=== PATIENT | female | born 1990 | race Caucasian/White ===

== ENCOUNTER 2016-08-14 20:21 | Emergency (ER) | payer MEDICAID | END 2016-08-14 20:45 | disposition home or self-care (01) | LOC: D.ER 20:21 | DX: S60.417A Abrasion of left little finger, initial encounter (principal); X58.XXXA Exposure to other specified factors, initial encounter; Y93.89 Activity, other specified; Y92.89 Other specified places as the place of occurrence of the external cause ==

== ENCOUNTER 2016-10-19 09:06 | Emergency (ER) | payer MEDICAID ==
[2016-10-19 09:58] LABS: BASOPHILS 0.5 % (0-2); EOSINOPHILS 1.9 % (0-7); HEMATOCRIT 47.7 % (36.0-48.0); HEMOGLOBIN 16.6 g/dL (12-16); IMMATURE GRANULOCYTES 0.2 % (0-5); LYMPHOCYTES 40.1 % (15-50); MCH 31.6 pg (26.0-34.0); MCHC 34.8 g/dL (31.0-37.0); MCV 90.7 fL (80.0-100.0); MEAN PLATELET VOLUME 10.1 fL (7.4-10.4); MONOCYTES 5.7 % (2-11); NEUTROPHILS 51.6 % (40-80); RBC 5.26 10x6/uL (4.00-5.40); RDW 11.8 % (11.5-14.5); WBC 9.8 10x3/uL (4.8-10.8)
[2016-10-19 10:07] LABS: PLATELET COUNT 269 10x3/uL (130-400)
[2016-10-19 10:12] LABS: ALBUMIN 4.4 g/dL (3.4-5.0); ALKALINE PHOSPHATASE 72 U/L (46-116); ALT (SGPT) 45 U/L (10-68); BILIRUBIN - TOTAL 0.77 mg/dL (0.2-1.3); CALC OSMOLALITY 281 mosm/kg (275-300); CALCIUM 9.4 mg/dL (8.5-10.1); CARBON DIOXIDE 29.3 mmol/L (21.0-32.0); CHLORIDE - SERUM 101 mmol/L (98-107); CREATININE - SERUM 0.7 mg/dL (0.6-1.3); GLUCOSE 110 mg/dL (74-106); SODIUM 141 mmol/L (136-145); UREA NITROGEN 12 mg/dL (7-18); eGFR NON AFRICAN AMERICAN > 90 mL/min (90-120)
[2016-10-19 10:20] LABS: APPEARANCE CLOUDY (CLEAR); BILIRUBIN NEGATIVE (NEGATIVE); COLOR DK YELLOW (YELLOW); GLUCOSE NEGATIVE (NEGATIVE); KETONE NEGATIVE (NEGATIVE); LEUKOCYTE ESTERASE 1+ (NEGATIVE); NITRITE NEGATIVE (NEGATIVE); PROTEIN TRACE mg/dL (NEGATIVE); SPECIFIC GRAVITY 1.025 (1.005-1.020); UROBILINOGEN NORMAL (NORMAL)
[2016-10-19 10:21] LABS: AMORPHOUS SEDIMENT <1+ /lpf (NONE SEEN); BACTERIA MANY /hpf (NONE SEEN); CALCIUM OXALATE CRYSTALS 25-50 /hpf (NONE SEEN); EPITHELIAL CELLS >50 /hpf (0-5); MUCUS <1+ /lpf (NONE SEEN); RED CELLS - URINE OCC /hpf (0-5); UDS - AMPHET POSITIVE QUAL (NEGATIVE); UDS - BARB NEGATIVE QUAL (NEGATIVE); UDS - BENZO NEGATIVE QUAL (NEGATIVE); UDS - COCAINE NEGATIVE QUAL (NEGATIVE); UDS - METH NEGATIVE QUAL (NEGATIVE); UDS - OPIATE NEGATIVE QUAL (NEGATIVE); UDS - PCP NEGATIVE QUAL (NEGATIVE); UDS - THC POSITIVE QUAL (NEGATIVE)
== END 2016-10-19 13:42 | disposition home or self-care (01) ==
LOC: D.ER 09:06
PROVIDERS: Emergency Medicine
DX: F15.10 Other stimulant abuse, uncomplicated (principal); F12.10 Cannabis abuse, uncomplicated; F17.200 Nicotine dependence, unspecified, uncomplicated

== ENCOUNTER 2017-12-16 18:15 | Emergency (ER) | payer MEDICAID ==
[~2017-12-16] VITALS: Ht 152.4 cm; Wt 54.5 kg
[2017-12-16 18:32] VITALS: Ht 152.4 cm; Wt 54.5 kg
[2017-12-16 19:36] LABS: BASOPHILS 0.6 % (0-2); EOSINOPHILS 0.3 % (0-7); HEMATOCRIT 47.3 % (36.0-48.0); HEMOGLOBIN 16.2 g/dL (12-16); IMMATURE GRANULOCYTES 0.2 % (0-5); LYMPHOCYTES 40.9 % (15-50); MCH 30.9 pg (26.0-34.0); MCHC 34.2 g/dL (31.0-37.0); MCV 90.1 fL (80.0-100.0); MEAN PLATELET VOLUME 9.7 fL (7.4-10.4); MONOCYTES 6.5 % (2-11); NEUTROPHILS 51.5 % (40-80); PLATELET COUNT 255 10x3/uL (130-400); RBC 5.25 10x6/uL (4.00-5.40); RDW 12.6 % (11.5-14.5); WBC 10.4 10x3/uL (4.8-10.8)
[2017-12-16 20:00] LABS: ALBUMIN 4.3 g/dL (3.4-5.0); ALKALINE PHOSPHATASE 62 U/L (46-116); ALT (SGPT) 49 U/L (10-68); BILIRUBIN - TOTAL 0.82 mg/dL (0.2-1.3); CALC OSMOLALITY 279 mosm/kg (275-300); CALCIUM 9.7 mg/dL (8.5-10.1); CARBON DIOXIDE 26.9 mmol/L (21.0-32.0); CHLORIDE - SERUM 101 mmol/L (98-107); CREATININE - SERUM 0.9 mg/dL (0.6-1.3); GLUCOSE 84 mg/dL (74-106); POTASSIUM - SERUM 4.1 mmol/L (3.5-5.1); PROTEIN - SERUM 8.7 g/dL (6.4-8.2); SODIUM 140 mmol/L (136-145); UREA NITROGEN 19 mg/dL (7-18); eGFR NON AFRICAN AMERICAN 80 mL/min (90-120)
[2017-12-16 20:35] LABS: HCG SERUM NEGATIVE (NEGATIVE)
[2017-12-16 21:55] LABS: UDS - AMPHET POSITIVE QUAL (NEGATIVE); UDS - BARB NEGATIVE QUAL (NEGATIVE); UDS - BENZO NEGATIVE QUAL (NEGATIVE); UDS - COCAINE NEGATIVE QUAL (NEGATIVE); UDS - OPIATE NEGATIVE QUAL (NEGATIVE); UDS - PCP NEGATIVE QUAL (NEGATIVE); UDS - THC POSITIVE QUAL (NEGATIVE)
[2017-12-16 22:02] LABS: APPEARANCE TURBID (CLEAR); BILIRUBIN NEGATIVE (NEGATIVE); COLOR AMBER (YELLOW); GLUCOSE NEGATIVE (NEGATIVE); KETONE LARGE mg/dL (NEGATIVE); NITRITE NEGATIVE (NEGATIVE); PROTEIN 1+ mg/dL (NEGATIVE); UROBILINOGEN NORMAL (NORMAL)
[2017-12-16 22:03] LABS: BACTERIA MANY /hpf (NONE SEEN)
[2017-12-16 22:04] LABS: AMORPHOUS SEDIMENT <1+ /lpf (NONE SEEN); MUCUS <1+ /lpf (NONE SEEN)
[2017-12-17 02:47] VITALS: BP 115/62
== END 2017-12-17 03:00 ==
LOC: D.ER 18:15
PROVIDERS: Emergency Medicine
DX: F29 Unspecified psychosis not due to a substance or known physiological condition (principal); F22 Delusional disorders; Z86.59 Personal history of other mental and behavioral disorders; N39.0 Urinary tract infection, site not specified

== ENCOUNTER 2018-05-26 02:05 | Emergency (ER) | payer MEDICAID ==
[~2018-05-26] VITALS: Ht 152.4 cm; Wt 60.9 kg
[2018-05-26 02:09] VITALS: Ht 152.4 cm; Wt 60.9 kg
[2018-05-26] MEDS ORDERED: FLOVENT HFA 11012 GM INH (02:11)
[2018-05-26] MEDS ORDERED: PROVENTIL/2.5 MG/3 M INH (02:24)
[2018-05-26] MEDS ORDERED: KEFLEX500 MG PO (02:24)
[2018-05-26 02:46] VITALS: BP 117/62
== END 2018-05-26 02:46 | disposition home or self-care (01) ==
LOC: D.ER 02:05
DX: J06.9 Acute upper respiratory infection, unspecified (principal)

== ENCOUNTER 2018-08-11 23:28 | Outpatient (CLI) | payer MEDICAID ==
[2018-05-26 02:09] VITALS: BMI 26.2
[~2018-08-11 23:28] MED LIST: FLOVENT HFA 11012 GM INH; KEFLEX500 MG PO; PROVENTIL/2.5 MG/3 M INH
[2018-08-11] MEDS ORDERED: PRENAVITE1 TAB PO (23:35)
[2018-08-11] MEDS ORDERED: ZOFRAN ODT4 MG/UDTAB (23:36)
[2018-08-12 00:42] LABS: UDS - AMPHET NEGATIVE QUAL (NEGATIVE); UDS - BARB NEGATIVE QUAL (NEGATIVE); UDS - BENZO NEGATIVE QUAL (NEGATIVE); UDS - COCAINE NEGATIVE QUAL (NEGATIVE); UDS - OPIATE NEGATIVE QUAL (NEGATIVE); UDS - PCP NEGATIVE QUAL (NEGATIVE); UDS - THC NEGATIVE QUAL (NEGATIVE)
[2018-08-12 00:51] LABS: APPEARANCE HAZY (CLEAR); BILIRUBIN NEGATIVE (NEGATIVE); COLOR DK YELLOW (YELLOW); GLUCOSE NEGATIVE (NEGATIVE); KETONE SMALL mg/dL (NEGATIVE); NITRITE NEGATIVE (NEGATIVE); PROTEIN NEGATIVE (NEGATIVE)
== END 2018-08-12 01:15 | disposition home or self-care (01) ==
LOC: D.LDO 23:28 → D.LD 23:29 → D.LDO 08-12 01:15
PROVIDERS: ATTEND Obstetrics & Gynecology
DX: O26.892 Other specified pregnancy related conditions, second trimester (principal); Z3A.26 26 weeks gestation of pregnancy

== ENCOUNTER 2018-09-30 18:55 | Outpatient (CLI) | payer MEDICAID ==
[2018-05-26 02:09] VITALS: BMI 26.2
[~2018-09-30 18:55] MED LIST changes: +PRENAVITE1 TAB PO; +ZOFRAN ODT4 MG/UDTAB
[2018-09-30] MEDS ORDERED: BUPRENORPHINE HC8 MG SL (19:03)
--- NOTE | 2018-09-30 19:53 | NUR ---
DR. FENTON NOTIFIED AND REVIEWED PT'S. BEHAVIOR AND ASSESSMENT RESULTS. PT IS A LOW RISK PER DR. FENTON. DR. FENTON STATED TO GIVE RESOURCES TO PT AT TIME OF DISCHARGE. NO FURTHER ORDERS AT THIS TIME. RESOURCES REVIEWED WITH PT AND SHE VERBALIZED UNDERSTANDING.
[2018-09-30 20:42] LABS: UDS - AMPHET NEGATIVE QUAL (NEGATIVE); UDS - BARB NEGATIVE QUAL (NEGATIVE); UDS - BENZO NEGATIVE QUAL (NEGATIVE); UDS - COCAINE NEGATIVE QUAL (NEGATIVE); UDS - OPIATE NEGATIVE QUAL (NEGATIVE); UDS - PCP NEGATIVE QUAL (NEGATIVE); UDS - THC NEGATIVE QUAL (NEGATIVE)
[2018-09-30 20:52] LABS: APPEARANCE CLOUDY (CLEAR); BILIRUBIN NEGATIVE (NEGATIVE); COLOR DK YELLOW (YELLOW); GLUCOSE NEGATIVE (NEGATIVE); KETONE NEGATIVE (NEGATIVE); NITRITE POSITIVE (NEGATIVE); PROTEIN TRACE mg/dL (NEGATIVE); SPECIFIC GRAVITY 1.015 (1.005-1.020); UROBILINOGEN NORMAL (NORMAL)
[2018-09-30 20:54] LABS: BACTERIA MANY /hpf (NONE SEEN); EPITHELIAL CELLS 0-5 /hpf (0-5); RED CELLS - URINE 0-5 /hpf (0-5); WHITE CELLS - URINE 0-5 /hpf (0-5)
[2018-11-02 05:38] VITALS: BMI 27.7
== END 2018-10-01 08:22 | disposition home or self-care (01) ==
LOC: D.LDO 18:55 → D.LD 20:59 → D.LDO 10-01 08:22
PROVIDERS: ATTEND Obstetrics & Gynecology
DX: O26.893 Other specified pregnancy related conditions, third trimester (principal); Z3A.34 34 weeks gestation of pregnancy

== ENCOUNTER 2018-11-02 01:55 | Inpatient (IN) | payer MEDICAID ==
[~2018-11-02] VITALS: Ht 152.4 cm; Wt 64.4 kg
[2018-11-02] VITALS (13 sets, daily range): BP systolic 104–120; BP diastolic 55–73; Ht 152.4 cm; Wt 64.4 kg
--- NOTE | ~2018-11-02 | OP ---
PATIENT NAME: GHADA NEGRON MEDICAL RECORD: [id number] :[birth year] LOCATION:[facility] D.1276 ADMISSION DATE:11/02/18 SURGEON: IVONNE SHERIDAN DO DATE OF OPERATION: 11/02/2018 PREOPERATIVE DIAGNOSIS: Previous section, in labor. POSTOPERATIVE DIAGNOSIS: Previous section, in labor. PRIMARY SURGEON: Ivonne Sheridan DO ANESTHESIA: Bertram Espinoza CRNA. PROCEDURE: Repeat low transverse section via Pfannenstiel incision. FINDINGS: Male infant, weight 6 pounds, Apgars 8 and 8, delivered at 4:02 a.m. Adhesions of anterior uterus to anterior abdominal wall. Normal-appearing uterus, bilateral fallopian tubes, and bilateral ovaries. SPECIMENS: Placenta. ESTIMATED BLOOD LOSS: 800 cc. FLUIDS: 1200 cc. URINE OUTPUT: 300 cc of clear urine. COMPLICATIONS: None. CONDITION: Stable. DESCRIPTION OF PROCEDURE: The risks, benefits, alternatives, and indications of the procedure were discussed with the patient. She voiced understanding of the procedure and signed the consent. She was taken to the OR where spinal anesthesia was administered and found to be adequate. She was placed in the dorsal supine position with a leftward tilt. She was prepped and draped in normal sterile fashion. A Pfannenstiel skin incision was made with a scalpel and carried down to the underlying layer of the fascia with the Bovie. The fascia was incised in the midline and extended laterally. The inferior aspect of the fascial incision was grasped with Hue clamps and the rectus muscle was dissected off sharply. Attention was then turned to the superior aspect of the fascial incision and the rectus muscle was dissected off in a similar fashion. The rectus muscle was grasped with 2 Allis, down to the level of the peritoneum with a scalpel. The peritoneum was noted to be free of adherent bowel and entered bluntly. There were adhesions of the anterior uterus to the anterior abdominal wall, which were taken down via sharp dissection. A bladder flap was created with Metzenbaum scissors. The bladder blade was inserted and the uterus was incised in a transverse fashion in the lower uterine segment. The incision was extended with lateral and upward traction. The infant's head was brought to the incision, and the delivered without difficulty. Meconium fluid was noted. Mouth and nose were suctioned. Cord was clamped and cut. The was handed off to the awaiting card tender. The placenta was manually removed. The uterus was exteriorized and a moist laparotomy sponge was used to assure complete removal of placental membranes. The hysterotomy was closed with 0 Vicryl in a running locked fashion with good hemostasis noted. OPERATIVE REPORT [id number] GHADA NEGRON Uterus, tubes, and ovaries were noted to be normal and returned back to the abdominal cavity. A moist laparotomy sponge was used to assure complete removal of blood clots and fluid from the abdominal cavity. The hysterotomy was reinspected and noted to be hemostatic. The rectus muscle was closed with 2-0 Monocryl in a running fashion with good hemostasis. The fascial incision was closed with 0 Vicryl in a running fashion with good hemostasis. The skin was closed with 3-0 Monocryl in a subcuticular fashion with Dermabond dressing. All needle, lap, sponge, and instrument counts were correct times 2. The patient tolerated the procedure well, and she was taken to recovery room in stable condition. TRANSINT:[id number] Voice Confirmation ID: [id number] DOCUMENT ID: [id number] IVONNE SHERIDAN DO CC: [id number] DICTATION DATE: 11/02/18 0504 FACILITY ASSISTANT: 11/02/18 06 ADM IN [facility] [address] [place] [address]
[~2018-11-02 01:55] MED LIST changes: +BUPRENORPHINE HC8 MG SL
[2018-11-02 03:13] LABS: HEMATOCRIT 33.2 % (36.0-48.0); HEMOGLOBIN 11.3 g/dL (12-16); MCH 29.4 pg (26.0-34.0); MCV 86.2 fL (80.0-100.0); MEAN PLATELET VOLUME 9.5 fL (7.4-10.4); RBC 3.85 10x6/uL (4.00-5.40); RDW 13.6 % (11.5-14.5); WBC 9.5 10x3/uL (4.8-10.8)
[2018-11-02 03:16] LABS: APPEARANCE CLEAR (CLEAR); BILIRUBIN NEGATIVE (NEGATIVE); COLOR YELLOW (YELLOW); GLUCOSE NEGATIVE (NEGATIVE); KETONE NEGATIVE (NEGATIVE); NITRITE NEGATIVE (NEGATIVE); PROTEIN NEGATIVE (NEGATIVE); SPECIFIC GRAVITY 1.005 (1.005-1.020); UROBILINOGEN NORMAL (NORMAL)
[2018-11-02 03:22] LABS: UDS - AMPHET NEGATIVE QUAL (NEGATIVE); UDS - BARB NEGATIVE QUAL (NEGATIVE); UDS - BENZO NEGATIVE QUAL (NEGATIVE); UDS - COCAINE NEGATIVE QUAL (NEGATIVE); UDS - OPIATE NEGATIVE QUAL (NEGATIVE); UDS - PCP NEGATIVE QUAL (NEGATIVE); UDS - THC NEGATIVE QUAL (NEGATIVE)
[2018-11-02] MEDS ORDERED: PHENERGAN25 MG RC (04:06)
[2018-11-02] MEDS ORDERED: PREPLUS CA-FE1 EACH PO (04:07)
[2018-11-02] MEDS ORDERED: PROAIR IH (04:11)
--- NOTE | 2018-11-02 05:30 | NUR ---
RECEIVED PT VIA BED FROM RR POST REPEAT C/S PER DR SHERIDAN, PT TO ROOM 1276, THIS RN AND SHAWANDA DE LA FUENTE RN IN ROOM, SHAWANDA DE LA FUENTE RN CHECKS FUNDUS, FF, ML, U/U, REPORTS MOD BLEEDING WITH NO CLOTS, VS INITIATED, NEW BAG NS WITH PITOCIN HUNG INFUSING VIA PUMP AT 125 ML/HR, OBTAINED ADMISSION ASSESSMENT, HISTORY, AND MED REC AT THIS TIME, PT RATES INC PAIN 09/22, TALKED TO PT ABOUT PAIN MANAGEMENT, PT VERBALIZES UNDERSTANDING, SHAWANDA DE LA FUENTE RN EMPTIES JUÁREZ CATH, REPORTS 300 MLS, SCD'S CONNECTED TO PUMP AND WORKING PROPERLY, BED IN LOW POSITION, SIDE RAILS X 2, CALL LIGHT IN REACH
--- NOTE | 2018-11-02 06:00 | NUR ---
PT RESTING, FF, ML, U/U, MOD BLEEDING NOTED WITH NO CLOTS, JHONATAN PAD CHANGED, WILL CONTINUE TO MONITOR
--- NOTE | 2018-11-02 06:24 | NUR ---
SHAWANDA ENGLAND, RN ADM MORPHINE PER MD ORDERS, SEE EMAR, PULSE OX PLACED AT THIS TIME
--- NOTE | 2018-11-02 07:36 | NUR ---
AROUSED FROM SLEEP FOR SHIFT ASSESSMENT. SHIFT ASSEMENT COMPLETED. SAYS HER PAIN IS 8/10. NO DISTRESS NOTED. EXPLAINED TO PATIENT THAT SOME THE BURNING PAIN IS COMMON AFTER C/S. ICE PACK GIVEN AND PLACED OVER INCISION FOR RELIEF. NOT YET TIME FOR MORPHINE OR TORADOL. CLEAR LIQUID DIET AT BEDSIDE. ATE FEW BITES OF JELLO. ASKED FOR WATER WHICH WAS GIVEN. SIDE RAILS UP X 2, CALL LIGHT IN REACH.
--- NOTE | 2018-11-02 08:05 | NUR ---
DR SHERIDAN ON L&D AND NOTIFIED OF CONTINUED C/O PAIN AND HX OF ASTHMA. NO NEW ORDERS RECEIVED AT PRESENT.
--- NOTE | 2018-11-02 08:59 | NUR ---
EYES CLOSED, RESPIRATIONS EVEN. JUÁREZ DRAINING WITHOUT DIFFICULTY. SIDERAILS REMAIN UP. CALL LIGHT IN REACH. WILL TCDB AND TEACH INCENTIVE SPIROMETER WHEN AWAKE.
--- NOTE | 2018-11-02 09:43 | NUR ---
CONTINUES SLEEPING WITH EYES CLOSED, REPIRATIONS EVEN AT 20. WILL TCDB WHEN MORPHINE IS DUE. SIDE RAILS UP X 2, CALL LIGHT IN REACH.
--- NOTE | 2018-11-02 10:29 | NUR ---
AROUSED FROM SLEEP TO REPOSITION. INSTRUCTED ON INCENTIVE SPIROMETER, USED X 4 WITH WEAK COUGH, STARTED CRYING SAYING "IT HURTS". REPOSITIONED FROM BACK TO RIGHT SIDE. REMOVED ON SATURATED JHONATAN-PAD WITH SMALL CLOT NOTED. JHONATAN-PADS X 2 PLACED, WILL WATCH BLEEDING. U/1 FIRM MIDLINE. JUÁREZ DRAINING CLEAR YELLOW URINE. WILL GIVE MORPHINE AND SCHEDULED TORADOL. DESIRES NICOTINE PATCH. SIDE RAILS UP X 2, CALL LIGHT IN REACH.
--- NOTE | 2018-11-02 10:38 | NUR ---
MORPHINE SULFATE 4 MG GIVEN SLOW IVP FOR RELIEF OF INCISIONAL STINGING PAIN, ICE PACK IN PLACE. INSTRUCTED PT THIS WILL HELP BUT MAY NOT TAKE ALL THE PAIN AWAY. WILL GIVE SCHEDULED TORADOL. ENCOURAGED PT TO REST AND TRY TO GO BACK TO SLEEP.
--- NOTE | 2018-11-02 10:45 | NUR ---
TORADOL GIVE IVP, NO LONGER CRYING OR MOANING, EYES PERIODICALLY CLOSE. ENCOURAGE PT TO DRINK SOME WATER EVERYTIME SHE WAKES UP. PLACED NEXT TO BED ON OVERBED TABLE. CALL LIGHT IN REACH, JUÁREZ DRAINING, CLARITZAAILS UP X 2.
--- NOTE | 2018-11-02 11:27 | NUR ---
CURRENTLY SLEEPING, EYES CLOSED, RESPIRATIONS EVEN. DID NOT INTENTIONALLY WAKE PT UP UPON ENTERING ROOM. JUÁREZ DRAINING. SIDERAILS REMAIN UP AND CALL LIGHT IN REACH.
--- NOTE | 2018-11-02 11:43 | NUR ---
TO ROOM TO CHECK BEEPING ALARIS PUMP. PT OPENED EYES, LOOKED AROUND AND WENT BACK TO SLEEP.
--- NOTE | 2018-11-02 11:46 | MORECARE ---
CASE MANAGEMENT DISCHARGE SUMMARY PATIENT: GHADA NEGRON UNIT: [id number] ADM DATE: 11/02/18 AGE: 28 : [birth year] SEX: F ROOM/BED: D.1276 AUTHOR: GORDO VELAZQUEZ PHYSICIAN: REFERRING PHYSICIAN: IVONNE SHERIDAN DO DATE OF SERVICE: 11/02/18 Discharge Plan Patient Name: GHADA NEGRON Facility: [facility]:[place] : 1990 Planned Disposition: Anticipated Discharge Date: Discharge Date: Expected LOS: Initial Reviewer: [email or web address] Initial Review Date: 11/02/2018 Generated: 11/02/18 12:45 pm Comments DCP- Discharge Planning Updated by [email or web address]: Chela Birmingham on 11/02/18 10:[address] CM attempted to see patient regarding d/c planning. Nursing staff advised CM to come back later if possible d/t patient pain level and trying to get her comfortable. CM will come back at a later time to evaluate. CM will continue to follow and assist as needed with discharge planning needs. Patient Name: GHADA NEGRON Page [id number] at 1146 All edits/amendments must be made on the electronic document DICTATION DATE: 11/02/18 1145 ENT PHYSICIAN: JHOAN 11/02/18 1145 RPT#: [id number] DC DATE: STATUS: ADM IN [facility] [address] [place] [address] END OF REPORT
--- NOTE | 2018-11-02 13:46 | NUR ---
NEW BAG PITOCIN HUNG. SLEEPING SOUNDLING ON RIGHT SIDE. RESPIRATIONS EVEN. JUÁREZ DRAINING DARK YELLOW URINE. U/1 FIRM, RUBRA MOD, JHONATAN PADS X 2 CHANGED. AROUSED SLIGHTLY DURING EXAM, FELL BACK TO SLEEP. SIDE RAILS UP X 2. SCD'S CONTINUE TO WORK BILATERALLY. WILL TCDB NEXT TIME AWAKE.
--- NOTE | 2018-11-02 13:52 | NUR ---
ATE 100% CLEAR LIQUID LUNCH.
--- NOTE | 2018-11-02 15:00 | NUR ---
DR CARTER NOTIFIED OF AVERAGE 25 ML/HR URINE OUTPUT OVER LAST FOUR TO FIVE HOURS. ORDERS RECEIVED FOR FLUID BOLUS.
--- NOTE | 2018-11-02 15:10 | NUR ---
IV NS HUNG PER ALARIS PUMP FOR FLUID BOLUS. INFUSING AT 999 ML/HR PER ALARIS PUMP. SLEEPING SOUNDLY, RESPIRATIONS EVEN. SIDERAILS UP X 2, CALL LIGHT IN REACH.
--- NOTE | 2018-11-02 15:15 | NUR ---
MORPHINE SULFATE 4 MG GIVEN SLOW IVP FOR C/0 8/10 INCISIONAL BURNING. INCENTIVE SPIROMETER USED X 3, WEAK NON-PRODUCTIVE COUGH. U/1 FIRM, RUBRA MOD, CLEAN JHONATAN-PADS X 2 PLACED. POSITIONED TO LEFT SIDE FOR COMFORT. SIDE RAILS UP X 2, CALL LIGHT IN REACH.
--- NOTE | 2018-11-02 16:15 | NUR ---
FLUID BOLUS COMPLETED. 75 ML CLEAR URINE IN UROMETER. VS WERE OBTAINED. RESPIRATIONS EVEN, RETURNED TO SLEEP AFTER VS. SIDERAILS UP X 2 CALL LIGHT IN REACH.
--- NOTE | 2018-11-02 16:20 | NUR ---
AWAKE, REQUESTED CRACKERS. PEANUT BUTTER, CRACKERS AND APPLESAUCE GIVEN. FRESH WATER AT BEDSIDE. NO DISTRESS NOTED. REMAINS IN NURSERY.
--- NOTE | 2018-11-02 17:50 | NUR ---
SCHEDULED TORADOL GIVEN IVP FOR PAIN RELIEF. INSTRUCTED PT THIS IS LAST DOSE OF IV PAIN MEDS SHE WILL BE SWITCH TO PILLS FOR PAIN RELIEF. AFTER MEDICATION WAS GIVEN IV FLUIDS DC'D. URINE DRAINING CLEAR YELLOW URINE. VISITORS IN ROOM WITH INFANT. TO CALL IF ANYTHING IS NEEDED. ALERT AND ORIENTED.
--- NOTE | 2018-11-02 17:52 | NUR ---
SITTING UP IN BED TALKING TO VISITOR. IN ROOM- VISITOR HOLDING. SCHEDULED TORADOL GIVEN. INSTRUCTED PT THAT THIS WOULD BE LAST IV MEDS MD IS SWITCHING HER TO PO MEDS. WILL DC IV FLUIDS AND MONITOR URINE OUTPUT. IF GOOD OUTPUT WILL DC JUÁREZ. SIDERAILS UP X2. CALL LIGHT IN REACH.
--- NOTE | 2018-11-02 19:30 | NUR ---
REC'D PT LYING IN BED W/EYES CLOSED. PT OPENS EYES SPONTANEOUSLY W/SOFT VERBAL STIMULUS. PAIN AND NEEDS ASSESSED. SHIFT ASSESSMENT COMPLETED. SEE FLOWSHEET. PT HAS EATEN A REGULAR DIET AND REPORTS TOLERATING IT WELL. PM SHIFT POC DISCUSSED W/PT. PT VERBALIZES UNDERSTANDING AND AGREEABLE. PT RATES PAIN 8-9/10 AND DESCRIBES HER ABD PAIN SORE. FRESH ICE WATER SERVED AND PT MEDICATED W/PERCOCET 10/325MG. PT INFORMED THAT AROUND 2229 SHE WILL BE ASSISTED W/GETTING UP TO ATTEMPT TO VOID AND TO AMBULATE IN THE [place] X 1 TONIGHT. PT AGREEBLE. PT DRIFTS OFF TO SLEEP FREQUENTLY.
--- NOTE | 2018-11-02 19:37 | NUR ---
SITTING UP IN BED HOLDING . JUÁREZ CATHETER DC'D WITH TIP INTACT. 425 ML URINE IN BAG AFTER 1 LITER BOLUS GIVEN. TAKING PO FLUIDS AND EATING WITHOUT DIFFICULTY. NO DISTRESS NOTED. RUBRA SMALL TO MOD, PER-PADS AND CHUX CHANGED. REQUESTS TO GO TO NURSERY. SIDE RAILS UP X 2, CALL LIGHT IN REACH. INFORMED PT THAT NEW SHIFT RN WILL BE IN TO SEE HER SOON. INFANT TO NURSERY.
--- NOTE | 2018-11-02 21:00 | NUR ---
ROUNDS MADE. PT NOW IN HIGH DOWNS'S. STILL REMAINS DROWZY B UT ABLE TO VAKE EASILY AND TALK WITH THIS RN. PAIN AND NEEDS ASSESSED. PT REPORTS PAIN IS NOW 6/10. PT DOES NOT APPEAR TO BE IN ANY DISTRESS. PT'S BROTHER AT BEDSIDE AT THIS TIME. PT DENIES NEEDS AT THIS TIME. DENIES FEELING THE URGE TO VOID.
--- NOTE | 2018-11-02 22:30 | NUR ---
THIS RN TO BEDSIDE TO GET PT UP TO VOID. PT DROWZY, BUT WAKES W/SOFT VERBAL STIMULUS. PT TO SITTING ON SIDE OF BED W/OUT ASSISTANCE. AMBULATORY TO BR W/OUT ASSIST. PT ABLE TO VOID 500ML. WARM WASH CLOTHS PROVIDED FOR PT TO PERFORM SELF PERICARE. SMALL LOCHIA NOTED. PT ASSISTED W/PUTTING PANTIES AND JHONATAN PAD ON. PT AMBULATORY BACK TO BED W/OUT ASSISTANCE. PT REQUESTING SNACKS TO EAT. MULTIPLE SNACKS, APPLE SUACE AND APPLE JUICE SERVED. FAMILY AT BEDSIDE AT THIS TIME. PT DENIES FURTHER NEEDS AT THIS TIME.
--- NOTE | 2018-11-02 23:36 | NUR ---
THIS RN TO PT'S ROOM FOR PAIN SHOT LIGHTER. SEE EMAR. PT RESTING QUIETLY W/EYES CLOSED, OPENS THEM W/SOFT VERBAL STIMULUS. TORADOL 10MG AND PERCOCET 10/325MG ONE TAB PO GIVEN. PT DENIES NEEDS AT THIS TIME.
--- NOTE | 2018-11-03 00:30 | NUR ---
ROUNDS MADE. PT REMAINS IN HIGH DOWNS'S RESTING W/EYES CLOSED. RESP EVEN AND UNLABORED. PT LEFT UNDISTURBED AT THIS TIME.
--- NOTE | 2018-11-03 02:37 | NUR ---
ROUNDS MADE. PT RESTING QUIETLY IN HIGH DOWNS'S WITH EYES CLOSED. RESP EVEN AND UNLABORED. PT LEFT UNDISTURBED AT THIS TIME TO ALLOW FOR REST.
--- NOTE | 2018-11-03 04:00 | NUR ---
THIS RN TO BEDSIDE TO ADMIN PAIN MEDICATION. PT RESTING QUIETLY W/EYES CLOSED. RESP EVEN. OPENS EYES SPONTANEOUSLY W/NOISE MADE IN ROOM. PAIN ASSESSED. PT REPORTS ABD "SORENESS" THAT SHE RATES 5/10. TORADOL 10MG AND PERCOCET 10/325MG PO ADMIN. PT REPORTS SHE GOT TO THE BR. 800ML NOTED AND DUMPED. FRESH ICE WATER SERVED. PT QUESTIONED IF SHE'D LIKE SOMETHING TO EAT. PT REQUEST APPLE SAUCE AND VANILLA ICE CREAM. ITEMS SERVED. PT ASKED IF SHE'D LIKE TO HAVE HER BABY. PT DOES. NB BROUGHT TO ROOM VIA OPEN CRIB. ID BANDS MATCHED PER POLICY. INFANT PLACED IN PT'S ARMS. PT ASKED TO COMPLETE NB PAPERWORK. PAPERWORK PLACED AT PT'S SIDE. PT DENIES FURTHER NEEDS AT THISTIME.
--- NOTE | 2018-11-03 04:56 | NUR ---
rounds made. pt lying in bed w/eyes closed. resp even and unlabored. propped on a pillow at pt's side. pt opens eyes spontaneously w/verbal stimulus. informed will be placed in open crib at bedside while pt sleeps. transfered to open crib and crib at pt's bedside. pt reassessed. pt reports pain is less than 5 at this time. no needs voiced.
[2018-11-03 05:09] LABS: HEPATITIS C ANTIBODY >11.0 (0.0-0.9)
[2018-11-03 05:46] LABS: BASOPHILS 0.4 % (0-2); EOSINOPHILS 2.7 % (0-7); HEMATOCRIT 28.9 % (36.0-48.0); HEMOGLOBIN 9.4 g/dL (12-16); IMMATURE GRANULOCYTES 0.5 % (0-5); MCHC 32.5 g/dL (31.0-37.0); MEAN PLATELET VOLUME 9.6 fL (7.4-10.4); NEUTROPHILS 51.4 % (40-80); PLATELET COUNT 288 10x3/uL (130-400); RBC 3.24 10x6/uL (4.00-5.40); RDW 14.1 % (11.5-14.5); WBC 9.5 10x3/uL (4.8-10.8)
[2018-11-03 06:11] LABS: MCV 89.2 fL (80.0-100.0)
--- NOTE | 2018-11-03 06:30 | NUR ---
ROUNDS MADE. PT RESTING QUIETLY IN HIGH DOWNS'S W/EYES CLOSED. RESP EVEN AND UNLABORED. PT LEFT UNDISTURBED AT THIS TIME.
[2018-11-03 06:32] LABS: ALBUMIN 1.7 g/dL (3.4-5.0); ALKALINE PHOSPHATASE 106 U/L (46-116); ALT (SGPT) 17 U/L (10-68); BILIRUBIN - TOTAL 0.18 mg/dL (0.2-1.3); CALC OSMOLALITY 281 mosm/kg (275-300); CALCIUM 7.8 mg/dL (8.5-10.1); CARBON DIOXIDE 24.1 mmol/L (21.0-32.0); CHLORIDE - SERUM 112 mmol/L (98-107); CREATININE - SERUM 0.6 mg/dL (0.6-1.3); GLUCOSE 88 mg/dL (74-106); POTASSIUM - SERUM 4.5 mmol/L (3.5-5.1); PROTEIN - SERUM 4.8 g/dL (6.4-8.2); SODIUM 143 mmol/L (136-145); UREA NITROGEN 6 mg/dL (7-18); eGFR NON AFRICAN AMERICAN > 90 mL/min (90-120)
[2018-11-03 07:12] LABS: RAPID PLASMA REAGIN Non Reactive (Non Reactive)
--- NOTE | 2018-11-03 07:20 | NUR ---
SITTING UP IN BED HOLDING . GETTING READY TO EAT BREAKFAST. WILL COMPLETE SHIFT ASSESSMENT AFTER BREAKFAST. TO CALL IF ANYTHING NEEDED.
[2018-11-03 07:33] VITALS: BP 107/59
--- NOTE | 2018-11-03 08:13 | NUR ---
PERCOCET 10 MG GIVEN PO FOR RELIEF OF 6-7/10 INCISIONAL ACHING "BRUISED FEELING". INFANT IN ARMS. REMINDED NOT TO SLEEP WITH INFANT IN BED. SIDE RAILS UP X 2, CALL LIGHT IN REACH. WHEN READY WILL SHOWER AND AMBULATE.
--- NOTE | 2018-11-03 09:22 | NUR ---
SAYS HER PAIN IS 7/10 AFTER ASKING PT TO RATE PAIN SEVERAL TIMES. SAYS IT STARTED HURTING WHEN SHE PUT INFANT BACK IN CRIB. DR CARTER CURRENTLY VISITING PATIENT.
--- NOTE | 2018-11-03 09:30 | NUR ---
PT USING CALL LIGHT REQUESTS RN TO ROOM, ON ENTRY TO ROOM PT C/O ARM "MY ARM IS BOTHERING ME. I WANT THIS OFF" AND POINTS TO NICOTINE PATCH ON LEFT SHOULDER. PATCH REMOVED PER PT REQUEST, NO OTHER NEEDS VOICED AT THIS TIME, NAD NOTED. CALL LIGHT IN EASY REACH.
--- NOTE | 2018-11-03 10:15 | NUR ---
SCHEDULED TORADOL GIVEN PO. 09/22 PAIN. DID NOT APPEAR IN PAIN UNTIL PAIN NUMBER WAS ASKED AND THEN PT HELD STOMACH AND STARTED TO MOAN. DESIRES TO TAKE A SHOWER AND AMBULATE.
--- NOTE | 2018-11-03 10:40 | NUR ---
SHOWER WAS COMPLETED WITHOUT DIFFICULTY. COMPLETE LINEN CHANGE DONE. AMBULATED TO NURSERY TO POWER SAW MECHANIC INFANT AND RETURNED TO ROOM. DESIRES TO RETURN TO BED. NO REQUESTS AT THIS TIME. WAITING FOR LUNCH. IN ARMS, SIDERAILS UP X 2, CALL LIGHT IN REACH. TO CALL IF ANYTHING IS NEEDED.
--- NOTE | 2018-11-03 11:42 | NUR ---
SITTING UP IN BED. SAYS HER PAIN IS 6/10. NO DISTRESS NOTED. IN NURSERY. SAYS SHE CAN LIVE WITH 6 ON PAIN SCALE. WAITING ON LUNCH. NO REQUESTS. TO CALL IF ANYTHING IS NEEDED.
[2018-11-03 12:09] LABS: RUBELLA IGG 2.75 index (Immune >0.99)
--- NOTE | 2018-11-03 14:32 | NUR ---
PERCOCET GIVEN UPON REQUEST, CUP OF APPLE JUICE ALSO PROVIDED, DENIES OTHER NEEDS, RESP EVEN AND UNLABORED, SMILING WITH INFANT IN ARMS, SIGNIFICANT OTHER ALSO PRESENT IN ROOM, CALL LIGHT IN EASY REACH, WILL MONITOR.
--- NOTE | 2018-11-03 15:20 | NUR ---
pt using emergency call light while in br voiding to report passing two large clots each the size of an egg. on assistance back to bed, fundus boggy and 2/u, pt reports pain 8/10 with uterine cramping, discussed rationale, need to move/ambulate, and this rn to provide fundal massage and now u/u. no further clots passed, moderate amount bleeding noted to peripad.
--- NOTE | 2018-11-03 15:29 | NUR ---
neurontin and toradol given with sips water, placed in pt arms per pt request. ff at u/u at this time, no further vaginal bleeding noted to peripad. will monitor. call light in reach.
--- NOTE | 2018-11-03 16:25 | NUR ---
ROUNDS COMPLETED, PT DENIES FURTHER BLEEDING EPISODES, STATES PAIN MANAGED TO HER COMFORT AT THIS TIME, SMILING, DENIES NEEDS OR CONCERNS, CALL LIGHT IN EASY REACH. WILL MONITOR.
--- NOTE | 2018-11-03 19:00 | NUR ---
WALKING IN HALLWAY PUSHING OPEN CRIB WITH INFANT. GAIT STEADY AND PT. STANDING UPRIGHT.
[2018-11-03 19:34] VITALS: BP 115/65
--- NOTE | 2018-11-03 19:34 | NUR ---
PT. LYING IN BED WITH HOB AT 45 DEGREES. SIDE RAILS UP X 2. IN OPEN CRIB AT BEDSIDE SLEEPING. BREATH SOUNDS CLEAR AND BOWEL SOUNDS AUDIBLE. ABD. INCISION CLEAN AND DRY. LOCHIA RUBRA SCANT. DENIES ANY DISCOMFORT IN LOWER EXTREMITIES. PT. CHEERFUL. RATES PAIN A 7 OF 10 AND STATES IS INCISIONAL PAIN. PT. INQUIRING IF SHE WOULD GO HOME IN AM. INQUIRED IF PT. HAD HELP AT HOME AND SHE STATES THAT SHE DOES. INFORMED THAT SHE IS DOING WELL AND VERY POSSIBLY MD WILL DISCHARGE IN AM. INFORMED PT. THAT PEDI WILL ALSO HAVE TO DISCHARGE INFANT SO TWO DIFFERENT PHYSICIANS WILL GIVE DISCHARGES. PT. STATES UNDERSTANDING.
--- NOTE | 2018-11-03 20:15 | MORECARE ---
CASE MANAGEMENT DISCHARGE SUMMARY PATIENT: GHADA BENAVIDES UNIT: [id number] ADM DATE: 11/02/18 AGE: 28 : [birth year] SEX: F ROOM/BED: D.9376 AUTHOR: CAROLINE,DOC PHYSICIAN: REFERRING PHYSICIAN: IVONNE SHERIDAN DO DATE OF SERVICE: 11/03/18 Discharge Plan Patient Name: GHADA BENAVIDES Facility: [facility]:[place] : 1990 Planned Disposition: Anticipated Discharge Date: Discharge Date: Expected LOS: Initial Reviewer: [email or web address] Initial Review Date: 11/02/2018 Generated: 11/03/18 9:15 pm Comments DCP- Discharge Planning Updated by [email or web address]: Chetna Jefferson on 11/03/18 7:[address] BABY'S FULL NAME: Sim De Santiago. MOB: Ghada Benavides age 28. EMPLOYEMENT: Unemployed. 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 / LIVING ARRANGEMENT: At present, with her mother Maren Benavides, #[phone]. She will be staying with her mother until she is financially able to get her own home/apartment. When FORadha is discharged from halfway, he will move in with patient and [facility]. OTHERS IN HOME: None. ANY OTHER CHILDREN? Yes. AGE OF CHILDREN? 6 years old. DOES MOB HAVE CUSTODY OF CHILDREN? No. IF NO WHY AND WHO HAS CUSTODY? The child's grand-parents. FOB: NAME: Arron De Santiago. At present LENNY is incarcerated for parole violation. PARENTING CLASSES? Yes, at [facility] [employer]. DC PLAN: Home with her mother, Maren Benavides #[phone]. IS HOME ENVIRONEMENT SAFE? Yes, per MOB. OR CONCERNS ABOUT TAKING BABY HOME? No. PETS IN HOME: No. SMOKERS: Yes, but will smoke outside home, away from [facility]. EXCESSIVE ETOH: No, does not drink ETOH. DRUGS: No. Has been clean for 8 months, through program @[facility] [employer]. TRANSPORTATION: Friend: Suraj Anna, or mother, Maren Benavides. CAR SEAT: Yes. MEDICAID: Yes. Receives a SSI check. WIC: Yes. Encouraged patient to visit WIC office on Monday after she is discharged home. FOODSTAMPS: No. FEEDING PLAN: Formula. WATER SOURCE: [place]. SUPPLIES: DIAPERS / CLOTHES / CRIB OR BASSINET / BOTTLES: Yes. HEAT SOURCE: Electricity. AIR CONDITIONING: Yes. AGRONOMY MANAGER: Does not have one as yet. Will need an appointment with [facility]. CARE: Yes, since 4th month. UDS: Negative. 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 MD: Dr. Kirk. PHARMACY: [facility]. DC NEEDS: Voices none. Patient is a client with [facility], receiving Hepatitis treatment. She has an appointment @[facility] on Monday and has transportation to appointments. Notified Feb, L/ of need for appointment for Pediatiatrician upon discharge. Chetna Jefferson RN DCP- Discharge Planning Updated by [id number]: Chela Birmingham on 11/02/18 10:[address] CM attempted to see patient regarding d/c planning. Nursing staff advised CM to come back later if possible d/t patient pain level and trying to get her comfortable. CM will come back at a later time to evaluate. CM will continue to follow and assist as needed with discharge planning needs. Last DP export: 11/02/18 10:46 a Patient Name: GHADA BENAVIDES Page [id number] at 2015 All edits/amendments must be made on the electronic document DICTATION DATE: 11/03/182014 TELECOM ASSISTANT: JHOAN 11/03/18 2015 RPT#: [id number] DC DATE: STATUS: ADM IN [facility] [address] [place] [address] END OF REPORT
--- NOTE | 2018-11-03 20:20 | NUR ---
PT. CALLED REQUESTING ANOTHER BLANKET. ADDITIONAL BLANKET PROVIDED. ICE WATER PROVIDED. ROOM TEMP ADJUST PER REQUEST OF PT. REMAINS IN OPEN CRIB AT BEDSIDE ASLEEP.
--- NOTE | 2018-11-03 20:30 | NUR ---
PT.SLIGHTLY DROWSY. NBN STAFF IN ROOM DOING INFANT ASSESSMENT. INQUIRED IF PT. WAS WARMER AND SHE STATES THAT SHE IS. PT. HAS MOVED EXTRA BLANKET DOWN TO APPROMXIMATELY WAIST LEVEL. STATES PAIN IS 6 OF 10. DENIES ANY FURTHER NEEDS.
--- NOTE | 2018-11-03 21:33 | NUR ---
FEEDING AT PRESENT. ROOM TEMP. COLD DESPITE THERMOSTAT SAT ON 76 DEGREE. ENGINEERING NOTIFIED. SCHEDULED MEDS GIVEN.
--- NOTE | 2018-11-03 22:30 | NUR ---
ROUNDS MADE. PT SITTING UP IN BED WATCHING TV. INFANT IN OPEN CRIB AT BEDSIDE. PAIN AND NEEDS ASSESSED. PT W/OUT C/O PAIN AT PRESENT. FRESH ICE WATER AND PEANUT BUTTER CRACKERS SERVED PER PT REQUEST.
--- NOTE | 2018-11-03 23:47 | NUR ---
pt rings call light. this rn to bedside. pt requesting clean shirt for baby. infant taken to nbn for shirt change. wet diaper changed. swaddled x 2 and hat placed. infant transported via open crib back to pt's bedside. denies needs at this time.
--- NOTE | 2018-11-04 | NUR ---
ROUNDS MADE. PT RESTING QUIETLY W/EYES CLOSED. RESP EVEN AND UNLABORED. PT LEFT UNDISTURBED AT THIS TIME. IN OPEN CRIB AT BEDSIDE.
--- NOTE | 2018-11-04 00:37 | NUR ---
THIS RN TO ROOMW ITH PERCOCET TO OFFER TO PT. PT CURRENTLY SNORING. RESP EVEN. PT LEFT UNDISTURBED AT THIS TIME.
--- NOTE | 2018-11-04 01:20 | NUR ---
PT RINGS CALL LIGHT. THIS RN TO PT'S ROOM. PT TRIES TO ARTICULATE WHAT SHE IS TRYING TO SAY TO ME. PT VERY DROWZY. PT UNDERSTOOD TO BE TRYING TO SEND INFANT BACK TO THE NBN. INFANT TRANSPORTED VIA CRIB TO NURSERY. ICE WATER SERVED AND ANOTHER ATTEMPT TO MEDICATE PATIENT MADE. PT UNABLE TO REMAIN AWAKE WHILE THIS RN IS AT BEDSIDE. MED TAKEN TO [facility] AND RETURNED.
--- NOTE | 2018-11-04 01:43 | NUR ---
PT RINGS CALL LIGHT THIS RN TO BEDSIDE. PT REPORTS SHE HAS RETURNED TO BEDROOM VOIDING. ASKS IF SHE HAS HAD PAIN MEDICATION. PT INFORMED THAT SHE HAS NOT BECAUSE SHE COULDN'T STAY AWAKE AT LAST ATTEMPT TO MEDICATE HER. PT NOW C/O ABD "SORENESS" THAT SHE RATES 9/10. PERCOCET 10/325MG ONE TAB GIVEN. PT DENIES FURTHER NEEDS AT THIS TIME.
--- NOTE | 2018-11-04 04:00 | NUR ---
ROUNDS MADE. PT SLEEPING IN HIGH DOWNS'S. SNORING AUDIBLE. RESP EVEN. PT LEFT UNDISTURBED.
--- NOTE | 2018-11-04 06:02 | NUR ---
C/O INCISIONAL AND ABD PAIN 08/22. PERCOCET AND TORADOL GIVEN PER ORDER AND PT REQUEST. DENIES ADDITIONAL NEEDS. INFANT PLACED IN ARMS FOR BOTTLE FEEDING. BED IN LOW POSITION WITH UPPER SIDE RAILS RAISED X2. CALL LIGHT AND PHONE WITHIN REACH. WILL CONTINUE TO MONITOR.
--- NOTE | 2018-11-04 06:42 | NUR ---
AMBULATORY IN [place], PUSHING INFANT IN OPEN CRIB. PAIN REASSESSMENT DONE, 05/23. STEADY GAIT NOTED. DENIES NEEDS.
--- NOTE | 2018-11-04 08:03 | NUR ---
SHIFT ASSESSMENT COMPLETED. ALREADY SHOWERED THIS AM. LINENS CHANGED. ATE 100% BREAKFAST. NO DISTRESS NOTED. HAS BEEN AMBULATING IN [place] SEVERAL TIMES THIS AM. ANTICIPATE DC HOME. BOTTLE FEEDING, RH POSITIVE, RUBELLA IMMUNE, UP TO DATE ON TDAP. SIDE RAILS UP X 2, CALL LIGHT IN REACH. TO CALL IF ANYTHING IS NEEDED.
[2018-11-04 08:42] VITALS: BP 109/68
--- NOTE | 2018-11-04 09:22 | NUR ---
UP AD SANG AMBULATING IN ROOM. WALKS WITH INFANT IN CRIB ON UNIT. SCHEDULE MED GIVEN-SEE E-MAR. NO REQUESTS AT THIS TIME. FRESH WATER GIVEN. TO CALL IF ANYTHING IS NEEDED.
--- NOTE | 2018-11-04 11:05 | NUR ---
RETURNED TO ROOM AFTER AMBULATING. ASKED FOR PAIN MEDICATION FOR 7-8 INCISIONAL "BRUISED" FEELING. PERCOCET 10 MG GIVEN PO FOR RELIEF. NO ADDITIONAL REQUESTS.
--- NOTE | 2018-11-04 11:26 | NUR ---
INFANT WILL NOT BE DC'D UNTIL TOMORROW, PLANNED TO ROOM PT IN BUT PT UNABLE TO GET PRESCRIPTIONS FILLED DUE TO NEEDING MORE "SLOTS" FOR MEDICARE COVERAGE. DR CARTER WAS NOTIFIED. TO HOLD DC AND CLINIC WILL HAVE TO COMPLETE PAPERWORK TOMORROW TO OBTAIN MORE SLOTS. PT NOTIFIED. PT RETURNED INFANT TO NURSERY AND CURRENTLY AMBULATING IN HALLS. DESIRES TO WALK OUTSIDE, INSTRUCTED TO STAY NEAR ENTRANCE AND NOT TO WALK AROUND BUILDING OR PARKING LOT. HAS NOT BEEN OUTSIDE X 3 DAYS. VERBALIZED UNDERSTANDING.
--- NOTE | 2018-11-04 12:44 | NUR ---
TRIED WARM PRUNE JUICE TO PROMOTE BM WITHOUT RESULTS. COLACE 100 MG GIVEN PO. SAYS SHE DOES NOT HAVE PAIN WHEN SITTING STILL BUT GAVE PAIN NUMBER 5-6/10 "THE NORMAL" SCHEDULED TORADOL GIVEN. INFANT IN ARMS, REQUESTED HOT TEA. 100 % REG DIET TAKEN.
--- NOTE | 2018-11-04 14:33 | NUR ---
AMBULATING IN [place] WITH INFANT. NO REQUESTS.
--- NOTE | 2018-11-04 15:19 | NUR ---
SITTING UP IN BED HOLDING INFANT. 06/22 INCISIONAL ACHING, SCHEDULE NEUROTIN GIVEN SEE E-MAR. NO REQUESTS. TO CALL IF ANYTHING IS NEEDED.
[2018-11-04 15:21] VITALS: BP 120/70
--- NOTE | 2018-11-04 17:16 | NUR ---
SLEEPING IN LOW FOWLERS POSITION. RESPIRATIONS EVEN. SIDERAILS UP X 2, CALL LIGHT IN REACH. IN CRIB.
--- NOTE | 2018-11-04 18:32 | NUR ---
FEEL ASLEEP WITH INFANT IN ARMS. AROUSED EASILY. DISCUSSED IMPORTANCE OF NOT SLEEPING WITH IN ARMS. STATES "I DIDN'T MEAN TOO". DISCUSSED POSSIBILITY THAT PAIN MEDICATION INCLUDING NEUROTIN MAY BE CAUSING DROWSINESS. VERBALIZED UNDERSTANDING. PLACED IN CRIB AT THIS TIME. MELVA, RN NURSERY RN TO ROOM. SCHEDULED TORADOL GIVEN. 06/22 INCISIONAL BRUISED ACHING. PASSING GAS WITHOUT DIFFICULY. HAS NOT HAD BM. INFORMED SHE CAN HAVE ANOTHER COLACE THIS PM. ALSO DISCUSSED HIGH FIBER DIET, FLUIDS AND THAT SOME MEDICATIONS CAN CAUSE CONSTIPATION ISSUES SINCE SHE HAS HAD THIS ISSUE BEFORE. SIDERAILS UP X 2, CALL LIGHT IN REACH.
[2018-11-04 19:11] VITALS: BP 121/64
--- NOTE | 2018-11-04 19:11 | NUR ---
SHIFT ASSESSMENT COMPLETED PER FLOWSHEET. VSS. FUNDUS FIRM, MIDLINE AND U2 WITH SCANT RUBRA LOCHIA, NO CLOTS NOTED. REPORTS THAT PAIN IS 5-6/10, ABD CRAMPING AND SORENESS AND "SOME" INCISIONAL BURNING. REPORTS THAT ACCEPTABLE PAIN LEVEL FOR HER IS 6/10 AND DENIES NEED FOR INTERVENTION. LOWER TRANSVERSE ABD INCISION WELL APPROXIMATED WITH GLUE INTACT, NO DRAINAGE OR S/S OF INFECTION NOTED. PERIPAD CURRENTLY COVERING INCISION AND PT REPORTS THAT SHE IS KEEPING PERIPAD OVER INCISION. EDUCATED ON IMPORTANCE OF KEEPING PANTS PULLED ABOVE INCISION TO KEEP FROM RUBBING IT, VERBALIZES UNDERSTANDING. EDUCATED ON S/S OF INFECTION TO REPORT, VERBALIZES UNDERSTANDING. BOWEL SOUNDS PRESENT AND ACTIVE, REPORTS THAT SHE IS PASSING FLATUS AND VOIDING WITHOUT DIFFICULTY. INFANT RESTING QUIETLY IN OPEN CRIB AT BEDSIDE. PT EDUCATED ON IMPORTANCE OF KEEPING IN OPEN CRIB WHEN SHE WAS SLEEPING, VERBALIZES UNDERSTANDING. POC DISCUSSED WITH PT, VERBALIZES UNDERSTANDING AND DENIES QUESTIONS. BED IN LOW POSITION WITH UPPER SIDE RAILS RAISED X2. CALL LIGHT AND PHONE WITHIN REACH.
--- NOTE | 2018-11-04 19:30 | NUR ---
SPOKE WITH DR. CARTER REGARDING ORDER FOR Q 4 HOUR V/S. ORDERS REC'D TO CHECK V/S Q 8 HOURS.
--- NOTE | 2018-11-04 19:37 | NUR ---
AMBULATORY IN [place]. STEADY GAIT NOTED. INFANT TO N WITH Rochelle BURGOS RN. PT DENIES NEEDS AT THIS TIME.
--- NOTE | 2018-11-04 21:39 | NUR ---
C/O INCISIONAL AND ABD DISCOMFORT, CRAMPING, INCISIONAL BURNING AND STINGING 08/22. PERCOCET GIVEN PER ORDER AND PT REQUEST. SCHEDULED GABAPENTIN GIVEN, REQUESTS COLACE,PROVIDED PER REQUEST. ICE WATER PROVIDED, DENIES ADDITIONAL NEEDS. RESTING QUIETLY IN OPEN CRIB AT BEDSIDE. DENIES ADDITIONAL NEEDS. BED IN LOW POSITION WITH UPPER SIDE RAILS RAISED X2. CALL LIGHT AND PHONE WITHIN REACH.
--- NOTE | 2018-11-04 22:30 | NUR ---
PAIN REASSESSMENT COMPLETED, -06/22, WATCHING TV AND PLAYING ON CELL PHONE DENIES NEEDS, STATES THAT SHE IS GOING TO FEED AT 2300 THEN TRY TO REST. BED IN LOW POSITION WITH UPPER SIDE RAILS RAISED X2. CALL LIGHT AND PHONE WITHIN REACH.
--- NOTE | 2018-11-04 23:00 | NUR ---
PT SITTING UP IN BED, AWAKE AND ALERT. HOLDING INFANT. DENIES NEEDS
--- NOTE | 2018-11-05 00:01 | NUR ---
TORADOL GIVEN PER ORDER. PAIN 5/10, INCISIONAL BURNING AND STINGING. RESTING QUIETLY IN OPEN CRIB AT BEDSIDE. REPORTS THAT SHE JUST COMPLETED FEEDING AND IS GOING TO TRY TO REST UNTIL NEXT FEEDING. DENIES ADDITIONAL NEEDS. BED IN LOW POSITION WITH UPPER SIDE RAILS RAISED X2. CALL LIGHT AND PHONE WITHIN REACH. WILL CONTINUE TO MONITOR.
--- NOTE | 2018-11-05 00:37 | NUR ---
RESTING QUIETLY IN SEMI-FOWLERS POSITION WITH EYES CLOSED. RESP REGULAR AND UNLABORED, NO S/S OF DISTRESS NOTED. BED IN LOW POSITION WITH UPPER SIDE RAILS RAISED X2. CALL LIGHT AND PHONE WITHIN REACH. WILL CONTINUE TO MONITOR AND ASSIST PRN.
--- NOTE | 2018-11-05 02:41 | NUR ---
RESTING QUIETLY LAYING ON RIGHT SIDE. RESP REGULAR AND UNLABORED, NO S/S OF DISTRESS NOTED. RESTING QUIETLY IN OPEN CRIB AT BEDSIDE. BED IN LOW POSITION WITH UPPER SIDE RAILS RAISED X2. CALL LIGHT AND PHONE WITHIN REACH. WILL CONTINUE TO MONITOR AND ASSIST PRN.
--- NOTE | 2018-11-05 04:28 | NUR ---
C/O INCISIONAL BURNING AND STINGING 08/22. PERCOCET GIVEN PER ORDER AND PT REQUEST. REFUSES V/S CHECK AT THIS TIME STATING THAT SHE IS WANTING TO WALK. ICE WATER PROVIDED. STEADY GAIT NOTED. TO NBN PER PT REQUEST. DENIES ADDITIONAL NEEDS AT THIS TIME. WILL CONTINUE TO MONITOR.
--- NOTE | 2018-11-05 05:20 | NUR ---
ABMBULATORY IN [place] WITH IN OPEN CRIB, STEADY GAIT NOTED. REPORT PAIN /. DENIES NEEDS. WILL CONTINUE TO MONITOR.
--- NOTE | 2018-11-05 06:50 | NUR ---
C/O INCISIONAL BURNING AND STINGING. TORADOL GIVEN PER ORDER. DENIES NEED FOR ADDITIONAL INTERVENTION AT THIS TIME. HOLDING IN ARMS. BED IN LOW POSITION WITH UPPER SIDE RAILS RAISED X2. CALL LIGHT AND PHONE WITHIN REACH. WILL CONTINUE TO MONITOR.
--- NOTE | 2018-11-05 07:54 | NUR ---
PT AMBULATORY IN HALLS AND OFF UNIT AT THIS TIME.
--- NOTE | 2018-11-05 08:02 | NUR ---
PT AMBULATORY BACK TO UNIT. QUESTIONS ABOUT PAIN MED, IF INFANT HAS BEEN TO ROOM, AND IF CAN BE DRESSED FOR DISCHARGE. ALL QUESTIONS ANSWERED.
[2018-11-05 08:35] VITALS: BP 116/70
--- NOTE | 2018-11-05 08:35 | NUR ---
PT SITTING UPRIGHT IN BED. VSS. HRRR WITHOUT AUDIBLE MURMUR. BBS CLEAR. BS X 4. ABDOMEN SOFT/NON-DISTENDED. PT STATES PASSING GAS AND HAS BM TODAY. ABODMINAL INCISION WITHOUT REDNESS, SWELLING OR DRAINAGE NOTED. FUNDUS FIRM AT U/2. RUBRA LOCHIA SMALL AMT. PT DENIES HEAVY BLEEDING OR PASSING CLOTS. NEG HOMANS' SIGN. PPP. NO EDEMA NOTED TO BLE. PT STATES C/O INCISIONAL PAIN OF "7" ON 0-10 PAIN SCALE. STATES "BURNING". NEURONTIN GIVEN PO ORDERED. PT STATES "IS THIS ALL I'M GETTING". PT INFORMED THAT WILL RE-EVALUATE IN 30-45 MINUTES. PT VERBALIZES UNDERSTANDING. SR UP X2. CALL LIGHT IN REACH.
--- NOTE | 2018-11-05 09:23 | NUR ---
PT SITTING UPRIGHT IN BED. C/O INCISIONAL PAIN OF "6" ON 0-10 PAIN SCALE. PERCOCET 10/325 GIVEN PO ORDERED. PT INSTRUCTED ON MED. VERBALIZES UNDERSTANDING.
--- NOTE | 2018-11-05 09:34 | NUR ---
PT REQUESTS AND RECEIVES MEÑO REILLY.
--- NOTE | 2018-11-05 09:41 | NUR ---
PT AMBULATORY IN HALLS AND OFF UNIT.
[2018-11-05] MEDS ORDERED: MOBIC7.5 MG PO (09:45)
[2018-11-05] MEDS ORDERED: NEURONTIN 300300 MG PO (09:45)
[2018-11-05] MEDS ORDERED: PERCOCET 7.5/321 TAB PO (09:45)
--- NOTE | 2018-11-05 11:16 | NUR ---
PT RETURNS TO ROOM FROM OFF UNIT.
--- NOTE | 2018-11-05 11:50 | NUR ---
DISCHARGE INSTRUCTIONS GIVEN TO PT. PT VERBALIZES UNDERSTANDING OF ALL INSTRUCTIONS. COPIES GIVEN TO PT. RX FOR MOBIC, NEURONTIN, AND PERCOCET GIVEN TO PT. PT PREPARES FOR DISCHARGE. AWAITING 'S DISCHARGE.
--- NOTE | 2018-11-05 12:45 | NUR ---
PT READY FOR DISCHARGE. DISCHARGED IN STABLE CONDITION WITH VIA WHEELCHAIR PER Talita BECKER RN TO PRIVATE VEHICLE.
--- NOTE | 2018-11-05 16:08 | MORECARE ---
CASE MANAGEMENT DISCHARGE SUMMARY PATIENT: GHADA BENAVIDES UNIT: [id number] ADM DATE: 11/02/18 AGE: 28 : 89 SEX: F ROOM/BED: D.1276 AUTHOR: CAROLINEDOC PHYSICIAN: REFERRING PHYSICIAN: IVONNE SHERIDAN DO DATE OF SERVICE: 11/05/18 Discharge Plan Patient Name: GHADA BENAVIDES Facility: [facility]:[place] : 1990 Planned Disposition: Anticipated Discharge Date: Discharge Date: 11/05/2018 Expected LOS: Initial Reviewer: [email or web address] Initial Review Date: 11/02/2018 Generated: 11/05/18 5:08 pm DCP- Discharge Planning Updated by [email or web address]: Chetna Jefferson on 11/03/18 7:[address] BABY'S FULL NAME: Sim De Santiago. MOB: Ghada Benavides age 28. EMPLOYEMENT: Unemployed. 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 / LIVING ARRANGEMENT: At present, with her mother Maren Benavides, #[phone]. She will be staying with her mother until she is financially able to get her own home/apartment. When LENNY is discharged from nursing home, [facility] OTHERS IN HOME: None. ANY OTHER CHILDREN? Yes. AGE OF CHILDREN? 6 years old. DOES MOB HAVE CUSTODY OF CHILDREN? No. IF NO WHY AND WHO HAS CUSTODY? The child's grand-parents. FOB: NAME: Arron Andrew De Santiago. At present LENNY is incarcerated for parole violation. PARENTING CLASSES? Yes, at [facility]. DC PLAN: Home with her mother, Maren Benavides #[phone]. IS HOME ENVIRONEMENT SAFE? Yes, per MOB. OR CONCERNS ABOUT TAKING BABY HOME? No. PETS IN HOME: No. SMOKERS: Yes, but will smoke outside home, away from [facility]. EXCESSIVE ETOH: No, does not drink ETOH. DRUGS: No. Has been clean for 8 months, through program @[facility]. TRANSPORTATION: Friend: Suraj Anna, or mother, Maren Benavides. CAR SEAT: Yes. MEDICAID: Yes. Receives a SSI check. WIC: Yes. Encouraged patient to visit WIC office on Monday after she is discharged home. FOODSTAMPS: No. FEEDING PLAN: Formula. WATER SOURCE: [place]. SUPPLIES: DIAPERS / CLOTHES / CRIB OR BASSINET / BOTTLES: Yes. HEAT SOURCE: Electricity. AIR CONDITIONING: Yes. MANAGER PROTEIN: Does not have one as yet. Will need an appointment with [facility]. CARE: Yes, since 4th month. UDS: Negative. 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 MD: Dr. Kirk. PHARMACY: [facility]. DC NEEDS: Voices none. Patient is a client with [facility], receiving Hepatitis treatment. She has an appointment @[facility] on Monday and has transportation to appointments. Notified Feb, L/D of need for appointment for Pediatiatrician upon discharge. Chetna Jefferson RN DCP- Discharge Planning Updated by [email or web address]: Chela Birmignham on 11/02/18 10:[address] CM attempted to see patient regarding d/c planning. Nursing staff advised CM to come back later if possible d/t patient pain level and trying to get her comfortable. CM will come back at a later time to evaluate. CM will continue to follow and assist as needed with discharge planning needs. Last DP export: 11/03/18 7:15 p Patient Name: GHADA BENAVIDES Page [id number] at 1608 All edits/amendments must be made on the electronic document DICTATION DATE: 11/05/181607 METAL CUT OFF SAW OPERATOR: JHOAN 11/05/188 RPT#: [id number] DC DATE:11/05/18 STATUS: DIS IN [facility] [address] [place] [address] END OF REPORT
[2018-11-06 15:09] LABS: HGB SOLUBILITY (SICKLE SCREEN) Negative (Negative)
== END 2018-11-05 12:45 | disposition home or self-care (01) | DRG 788 ==
LOC: D.LDO 01:55 → D.LD 02:55
PROVIDERS: ADMIT Student in an Organized Health Care Education/Training Program; ATTEND Student in an Organized Health Care Education/Training Program
PROC: 10D00Z1 Extraction of Products of Conception, Low, Open Approach (ICD-10-PCS; principal; 2018-11-02 03:49)
DX: O98.32 Other infections with a predominantly sexual mode of transmission complicating childbirth (principal); A60.00 Herpesviral infection of urogenital system, unspecified; Z3A.38 38 weeks gestation of pregnancy; Z37.0 Single live birth; O34.211 Maternal care for low transverse scar from previous cesarean delivery; O76 Abnormality in fetal heart rate and rhythm complicating labor and delivery; O77.0 Labor and delivery complicated by meconium in amniotic fluid; O99.89 Other specified diseases and conditions complicating pregnancy, childbirth and the puerperium; N73.6 Female pelvic peritoneal adhesions (postinfective)

== ENCOUNTER 2019-05-14 00:43 | Emergency (ER) | payer MEDICAID ==
[~2019-05-14 00:43] MED LIST changes: +MOBIC7.5 MG PO; +NEURONTIN 300300 MG PO; +PERCOCET 7.5/321 TAB PO; +PHENERGAN25 MG RC; +PREPLUS CA-FE1 EACH PO; +PROAIR IH
[2019-05-14 00:50] VITALS: Ht 152.4 cm
[2019-05-14] MEDS ORDERED: RISPERDAL2 MG PO (00:52)
[2019-05-14] MEDS ORDERED: VALTREX500 MG PO (01:17)
[2019-05-14] MEDS ORDERED: ABREVA2 GM TOPICAL (01:18)
--- NOTE | 2019-05-14 01:49 | NUR ---
DOCTOR FENTON DOTIFIED OF ASSESSMENT FINDING. PATIENT IS A LOW RISK PER DOCTOR FETNON. DOCTOR FENTON ORDERED TO GIVE RESOURCES AT DISCHARGE. RESOURCES GIVEN AND PATIENT VERBALIZED UNDERSTANDING.
[2019-05-14 02:03] LABS: BILIRUBIN NEGATIVE (NEGATIVE); GLUCOSE NEGATIVE (NEGATIVE); KETONE NEGATIVE (NEGATIVE); NITRITE NEGATIVE (NEGATIVE); UROBILINOGEN NORMAL (NORMAL)
[2019-05-14 02:07] VITALS: BP 125/78
== END 2019-05-14 02:08 | disposition home or self-care (01) ==
LOC: D.ER 00:43
PROVIDERS: Family Medicine
DX: N76.0 Acute vaginitis (principal); F17.210 Nicotine dependence, cigarettes, uncomplicated

== ENCOUNTER 2019-05-29 03:37 | Emergency (ER) | payer MEDICAID ==
[~2019-05-29] VITALS: Ht 152.4 cm; Wt 59.1 kg
[~2019-05-29 03:37] MED LIST changes: +ABREVA2 GM TOPICAL; +RISPERDAL2 MG PO; +VALTREX500 MG PO
[2019-05-29 03:38] VITALS: Ht 152.4 cm; Wt 59.1 kg
[2019-05-29 04:34] LABS: BASOPHILS 0.4 % (0-2); EOSINOPHILS 0 % (0-7); HEMATOCRIT 46.2 % (36.0-48.0); HEMOGLOBIN 15.2 g/dL (12-16); IMMATURE GRANULOCYTES 0.2 % (0-5); LYMPHOCYTES 24.3 % (15-50); MCH 29.2 pg (26.0-34.0); MCHC 32.9 g/dL (31.0-37.0); MCV 88.7 fL (80.0-100.0); MEAN PLATELET VOLUME 9.9 fL (7.4-10.4); MONOCYTES 2.7 % (2-11); NEUTROPHILS 72.4 % (40-80); PLATELET COUNT 246 10x3/uL (130-400); RBC 5.21 10x6/uL (4.00-5.40); RDW 13.2 % (11.5-14.5); WBC 5.2 10x3/uL (4.8-10.8)
[2019-05-29 04:35] LABS: BILIRUBIN NEGATIVE (NEGATIVE); GLUCOSE NEGATIVE (NEGATIVE); KETONE MODERATE mg/dL (NEGATIVE); NITRITE NEGATIVE (NEGATIVE); SPECIFIC GRAVITY 1.025 (1.005-1.020); UROBILINOGEN NORMAL (NORMAL)
[2019-05-29 04:36] LABS: CALC OSMOLALITY 283 mosm/kg (275-300); CALCIUM 9.3 mg/dL (8.5-10.1); CARBON DIOXIDE 18.5 mmol/L (21.0-32.0); CHLORIDE - SERUM 103 mmol/L (98-107); CREATININE - SERUM 0.8 mg/dL (0.6-1.3); GLUCOSE 128 mg/dL (74-106); POTASSIUM - SERUM 3.4 mmol/L (3.5-5.1); SODIUM 142 mmol/L (136-145); UREA NITROGEN 9 mg/dL (7-18); eGFR NON AFRICAN AMERICAN > 90 mL/min (90-120)
[2019-05-29 04:44] LABS: ALBUMIN 4.4 g/dL (3.4-5.0); ALKALINE PHOSPHATASE 82 U/L (30-120); ALT (SGPT) 60 U/L (10-68); AMYLASE - SERUM 41 U/L (25-115); BILIRUBIN - TOTAL 0.35 mg/dL (0.2-1.3); LIPASE 57 U/L (73-393); PROTEIN - SERUM 8.5 g/dL (6.4-8.2)
[2019-05-29 04:49] LABS: TROPONIN-I < 0.017 ng/mL (0.000-0.060)
[2019-05-29 04:59] LABS: UDS - AMPHET NEGATIVE QUAL (NEGATIVE); UDS - BARB NEGATIVE QUAL (NEGATIVE); UDS - BENZO NEGATIVE QUAL (NEGATIVE); UDS - COCAINE NEGATIVE QUAL (NEGATIVE); UDS - OPIATE NEGATIVE QUAL (NEGATIVE); UDS - PCP NEGATIVE QUAL (NEGATIVE); UDS - THC NEGATIVE QUAL (NEGATIVE)
[2019-05-29] MEDS ORDERED: ZOFRAN ODT4 MG/UDTAB PO (06:45)
[2019-05-29 07:00] VITALS: BP 99/78
== END 2019-05-29 07:10 | disposition home or self-care (01) ==
LOC: D.ER 03:37
PROVIDERS: Family Medicine
DX: F10.129 Alcohol abuse with intoxication, unspecified (principal); Y90.3 Blood alcohol level of 60-79 mg/100 ml; J45.909 Unspecified asthma, uncomplicated; Z72.0 Tobacco use; K21.9 Gastro-esophageal reflux disease without esophagitis; R11.2 Nausea with vomiting, unspecified

== ENCOUNTER 2019-08-07 22:24 | Emergency (ER) | payer MEDICAID ==
[~2019-08-07] VITALS: Ht 152.4 cm; Wt 72.7 kg
[~2019-08-07 22:24] MED LIST changes: +ZOFRAN ODT4 MG/UDTAB PO
[2019-08-07 22:37] VITALS: Ht 152.4 cm; Wt 72.7 kg
[2019-08-07 23:32] LABS: HEMATOCRIT 45.6 % (36.0-48.0); HEMOGLOBIN 15.4 g/dL (12-16); LYMPHOCYTES 29.4 % (15-50); MCH 29.1 pg (26.0-34.0); MCHC 33.8 g/dL (31.0-37.0); MCV 86.2 fL (80.0-100.0); MEAN PLATELET VOLUME 9.5 fL (7.4-10.4); NEUTROPHILS 62.9 % (40-80); PLATELET COUNT 235 10x3/uL (130-400); RBC 5.29 10x6/uL (4.00-5.40); RDW 12.1 % (11.5-14.5); WBC 7.6 10x3/uL (4.8-10.8)
[2019-08-07 23:42] LABS: CALC OSMOLALITY 279 mosm/kg (275-300); CALCIUM 9.5 mg/dL (8.5-10.1); CARBON DIOXIDE 26.2 mmol/L (21.0-32.0); CHLORIDE - SERUM 103 mmol/L (98-107); CREATININE - SERUM 0.8 mg/dL (0.6-1.3); GLUCOSE 97 mg/dL (74-106); POTASSIUM - SERUM 3.4 mmol/L (3.5-5.1); SODIUM 139 mmol/L (136-145); UREA NITROGEN 17 mg/dL (7-18); eGFR NON AFRICAN AMERICAN 90 mL/min (90-120)
[2019-08-07 23:48] LABS: ALBUMIN 4.4 g/dL (3.4-5.0); ALKALINE PHOSPHATASE 69 U/L (30-120); ALT (SGPT) 91 U/L (10-68); BILIRUBIN - TOTAL 0.86 mg/dL (0.2-1.3); MAGNESIUM - SERUM 2.3 mg/dL (1.8-2.4); PROTEIN - SERUM 8.9 g/dL (6.4-8.2)
--- NOTE | 2019-08-08 00:16 | NUR ---
DR. FENTON NOTIFIED AND REVIEWED PT'S BEHAVIOR AND ASSESSMENT RESULTS. PT IS A LOW RISK PER DR. FENTON. DR. FENTON STATED TO GIVE RESOURCES TO PT AT TIME OF DISCHARGE. NO FURTHER ORDERS AT THIS TIME. RESOURCES REVIEWED WITH PT AND SHE VERBALIZED UNDERSTANDING.
[2019-08-08 00:52] LABS: HCG URINE NEGATIVE (NEGATIVE)
[2019-08-08 00:54] LABS: BILIRUBIN NEGATIVE (NEGATIVE); GLUCOSE NEGATIVE (NEGATIVE); KETONE MODERATE mg/dL (NEGATIVE); NITRITE NEGATIVE (NEGATIVE); UROBILINOGEN NORMAL (NORMAL)
[2019-08-08 00:59] LABS: AMORPHOUS SEDIMENT >1+ /lpf (NONE SEEN); BACTERIA FEW /hpf (NEGATIVE); EPITHELIAL CELLS 0-5 /hpf (0-5); RED CELLS - URINE 0-5 /hpf (0-5); UDS - AMPHET POSITIVE QUAL (NEGATIVE); UDS - BARB NEGATIVE QUAL (NEGATIVE); UDS - BENZO NEGATIVE QUAL (NEGATIVE); UDS - COCAINE NEGATIVE QUAL (NEGATIVE); UDS - OPIATE NEGATIVE QUAL (NEGATIVE); UDS - PCP NEGATIVE QUAL (NEGATIVE); UDS - THC POSITIVE QUAL (NEGATIVE); WHITE CELLS - URINE 0-5 /hpf (NEGATIVE)
[2019-08-08 10:46] VITALS: BP 93/53
== END 2019-08-08 11:55 ==
LOC: D.ER 22:24
PROVIDERS: Family Medicine
DX: F29 Unspecified psychosis not due to a substance or known physiological condition (principal); R44.0 Auditory hallucinations; R44.1 Visual hallucinations; F15.10 Other stimulant abuse, uncomplicated; J45.909 Unspecified asthma, uncomplicated; K21.9 Gastro-esophageal reflux disease without esophagitis

== ENCOUNTER 2019-08-25 17:08 | Emergency (ER) | payer MEDICAID ==
[~2019-08-25] VITALS: Ht 152.4 cm; Wt 54.1 kg
[2019-08-25 17:10] VITALS: Ht 152.4 cm; Wt 54.1 kg
[2019-08-25] MEDS ORDERED: SCHIZOPHRENIA MED (17:11)
[2019-08-25] MEDS ORDERED: DEPRESSION MED (17:12)
[2019-08-25 18:34] LABS: HEMATOCRIT 44.2 % (36.0-48.0); HEMOGLOBIN 14.9 g/dL (12-16); LYMPHOCYTES 22.2 % (15-50); MCH 29.3 pg (26.0-34.0); MCHC 33.7 g/dL (31.0-37.0); MEAN PLATELET VOLUME 9.8 fL (7.4-10.4); NEUTROPHILS 72.5 % (40-80); PLATELET COUNT 237 10x3/uL (130-400); RBC 5.08 10x6/uL (4.00-5.40); RDW 12.6 % (11.5-14.5); WBC 6.5 10x3/uL (4.8-10.8)
[2019-08-25 18:39] LABS: ANION GAP 21.5 mmol/L (8-16); CALCIUM 9.6 mg/dL (8.5-10.1); CARBON DIOXIDE 18.9 mmol/L (21.0-32.0); CREATININE - SERUM 1.1 mg/dL (0.6-1.3); POTASSIUM - SERUM 3.4 mmol/L (3.5-5.1)
[2019-08-25 18:45] LABS: ALBUMIN 4.5 g/dL (3.4-5.0); BILIRUBIN - TOTAL 0.88 mg/dL (0.2-1.3); MAGNESIUM - SERUM 1.9 mg/dL (1.8-2.4); PROTEIN - SERUM 8.3 g/dL (6.4-8.2)
[2019-08-25 18:54] LABS: HCG SERUM NEGATIVE (NEGATIVE)
[2019-08-25 20:54] LABS: BILIRUBIN NEGATIVE (NEGATIVE); GLUCOSE NEGATIVE (NEGATIVE); KETONE SMALL mg/dL (NEGATIVE); NITRITE NEGATIVE (NEGATIVE); SPECIFIC GRAVITY 1.005 (1.005-1.020); UROBILINOGEN NORMAL (NORMAL)
[2019-08-25 21:02] LABS: UDS - AMPHET NEGATIVE QUAL (NEGATIVE); UDS - BARB NEGATIVE QUAL (NEGATIVE); UDS - BENZO NEGATIVE QUAL (NEGATIVE); UDS - COCAINE NEGATIVE QUAL (NEGATIVE); UDS - OPIATE NEGATIVE QUAL (NEGATIVE); UDS - PCP NEGATIVE QUAL (NEGATIVE); UDS - THC POSITIVE QUAL (NEGATIVE)
[2019-08-25] MEDS ORDERED: PROAIR HFA8.5 G1 INH (21:15)
[2019-08-25] MEDS ORDERED: PHENERGAN25 M1 PO (21:15)
[2019-08-25 22:35] VITALS: BP 129/76
== END 2019-08-25 22:38 | disposition home or self-care (01) ==
LOC: D.ER 17:08
PROVIDERS: Family Medicine
DX: R11.10 Vomiting, unspecified (principal); E86.0 Dehydration; F19.10 Other psychoactive substance abuse, uncomplicated; R10.9 Unspecified abdominal pain

== ENCOUNTER 2020-06-05 22:35 | Emergency (ER) | payer MEDICAID ==
[~2020-06-05] VITALS: Ht 152.4 cm; Wt 53.2 kg
[~2020-06-05 22:35] MED LIST changes: +DEPRESSION MED; +MACROBID100 MG PO; +OMEPRAZOLE40 MG PO; +PHENERGAN25 M1 PO; +PROAIR HFA8.5 G1 INH; +SCHIZOPHRENIA MED
[2020-06-05 22:36] VITALS: Ht 152.4 cm; Wt 53.2 kg
[2020-06-06 00:17] LABS: BASOPHILS 0.5 % (0-2); EOSINOPHILS 0.1 % (0-7); HEMATOCRIT 44.9 % (36.0-48.0); HEMOGLOBIN 15.3 g/dL (12-16); IMMATURE GRANULOCYTES 0.2 % (0-5); LYMPHOCYTE ABS# 2.45 10x3/uL (1.18-3.74); LYMPHOCYTES 28.1 % (15-50); MCH 30.8 pg (26.0-34.0); MCHC 34.1 g/dL (31.0-37.0); MCV 90.5 fL (80.0-100.0); MEAN PLATELET VOLUME 9.6 fL (7.4-10.4); MONOCYTES 5.6 % (2-11); NEUTROPHIL ABS# 5.71 10x3/uL (1.56-6.13); NEUTROPHILS 65.5 % (40-80); RBC 4.96 10x6/uL (4.00-5.40); RDW 11.6 % (11.5-14.5); WBC 8.7 10x3/uL (4.8-10.8)
[2020-06-06 00:18] LABS: PLATELET COUNT 248 10x3/uL (130-400)
[2020-06-06] MEDS ORDERED: GEODON20 MG PO (00:18)
[2020-06-06] MEDS ORDERED: VALTREX500 MG PO (00:18)
[2020-06-06] MEDS ORDERED: PAXIL20 MG PO (00:20)
[2020-06-06] MEDS ORDERED: OMEPRAZOLE40 MG PO (00:20)
[2020-06-06] MEDS ORDERED: ZOFRAN ODT4 MG/UDTAB PO (00:20)
[2020-06-06] MEDS ORDERED: INVEGA 3 MG ER T3 MG PO (00:21)
[2020-06-06 00:23] VITALS: BP 139/87
[2020-06-06 00:30] LABS: CALC OSMOLALITY 279 mosm/kg (275-300); CALCIUM 9.7 mg/dL (8.5-10.1); CARBON DIOXIDE 27.5 mmol/L (21.0-32.0); CHLORIDE - SERUM 104 mmol/L (98-107); CREATININE - SERUM 0.9 mg/dL (0.6-1.3); GLUCOSE 112 mg/dL (74-106); POTASSIUM - SERUM 4.3 mmol/L (3.5-5.1); SODIUM 140 mmol/L (136-145); UREA NITROGEN 12 mg/dL (7-18); eGFR NON AFRICAN AMERICAN 79 mL/min (90-120)
[2020-06-06 00:36] LABS: ALBUMIN 4.4 g/dL (3.4-5.0); ALKALINE PHOSPHATASE 81 U/L (30-120); ALT (SGPT) 47 U/L (10-68); BILIRUBIN - TOTAL 0.38 mg/dL (0.2-1.3); MAGNESIUM - SERUM 2.1 mg/dL (1.8-2.4); PROTEIN - SERUM 8.1 g/dL (6.4-8.2)
[2020-06-06 00:37] LABS: BILIRUBIN NEGATIVE (NEGATIVE); KETONE NEGATIVE (NEGATIVE); NITRITE NEGATIVE (NEGATIVE); UROBILINOGEN 4 mg/dL (< 2)
[2020-06-06 00:41] LABS: HCG URINE NEGATIVE (NEGATIVE)
[2020-06-06 00:47] LABS: UDS - AMPHET POSITIVE QUAL (NEGATIVE); UDS - BARB NEGATIVE QUAL (NEGATIVE); UDS - BENZO NEGATIVE QUAL (NEGATIVE); UDS - COCAINE NEGATIVE QUAL (NEGATIVE); UDS - OPIATE NEGATIVE QUAL (NEGATIVE); UDS - PCP NEGATIVE QUAL (NEGATIVE); UDS - THC POSITIVE QUAL (NEGATIVE)
== END 2020-06-06 03:18 | disposition home or self-care (01) ==
LOC: D.ER 22:35
PROVIDERS: Emergency Medicine
DX: F20.0 Paranoid schizophrenia (principal); F15.10 Other stimulant abuse, uncomplicated

== ENCOUNTER 2020-06-25 18:35 | Emergency (ER) | payer MEDICAID ==
[~2020-06-25] VITALS: Ht 152.4 cm; Wt 51.4 kg
[~2020-06-25 18:35] MED LIST changes: +GEODON20 MG PO; +INVEGA 3 MG ER T3 MG PO; +PAXIL20 MG PO
[2020-06-25 18:42] VITALS: BP 135/88; Ht 152.4 cm; Wt 51.4 kg
== END 2020-06-25 20:56 | disposition home or self-care (01) ==
LOC: D.ER 18:35
DX: F23 Brief psychotic disorder (principal)

== ENCOUNTER 2020-07-06 10:33 | Emergency (ER) | payer MEDICAID ==
[~2020-07-06] VITALS: Ht 152.4 cm; Wt 54.5 kg
[2020-07-06 10:35] VITALS: BP 132/83; Ht 152.4 cm; Wt 54.5 kg
[2020-07-06 11:24] LABS: HCG URINE NEGATIVE (NEGATIVE)
[2020-07-06 11:29] LABS: UDS - AMPHET POSITIVE QUAL (NEGATIVE); UDS - BARB NEGATIVE QUAL (NEGATIVE); UDS - BENZO NEGATIVE QUAL (NEGATIVE); UDS - COCAINE NEGATIVE QUAL (NEGATIVE); UDS - OPIATE NEGATIVE QUAL (NEGATIVE); UDS - PCP NEGATIVE QUAL (NEGATIVE); UDS - THC POSITIVE QUAL (NEGATIVE)
[2020-07-06 11:34] LABS: HEMATOCRIT 43.9 % (36.0-48.0); HEMOGLOBIN 14.7 g/dL (12-16); MCH 30.1 pg (26.0-34.0); MCHC 33.6 g/dL (31.0-37.0); MCV 89.5 fL (80.0-100.0); MEAN PLATELET VOLUME 7.9 fL (7.4-10.4); PLATELET COUNT 239 10x3/uL (130-400); RDW 12.2 % (11.5-14.5); WBC 5.6 10x3/uL (4.8-10.8)
[2020-07-06 11:39] LABS: BILIRUBIN NEGATIVE (NEGATIVE); KETONE NEGATIVE (NEGATIVE); NITRITE NEGATIVE (NEGATIVE); UROBILINOGEN 4 mg/dL (< 2)
[2020-07-06 11:40] LABS: BACTERIA MANY HPF (NONE SEEN); WHITE CELLS - URINE OCC HPF (0-4)
[2020-07-06 11:49] LABS: CALC OSMOLALITY 277 mosm/kg (275-300); CALCIUM 9.1 mg/dL (8.5-10.1); CARBON DIOXIDE 29.2 mmol/L (21.0-32.0); CHLORIDE - SERUM 103 mmol/L (98-107); CREATININE - SERUM 0.6 mg/dL (0.6-1.3); GLUCOSE 93 mg/dL (74-106); POTASSIUM - SERUM 4.1 mmol/L (3.5-5.1); SODIUM 140 mmol/L (136-145); UREA NITROGEN 10 mg/dL (7-18); eGFR NON AFRICAN AMERICAN > 90 mL/min (90-120)
[2020-07-06 11:53] LABS: ALBUMIN 4.2 g/dL (3.4-5.0); ALKALINE PHOSPHATASE 68 U/L (30-120); ALT (SGPT) 40 U/L (10-68); BILIRUBIN - TOTAL 0.58 mg/dL (0.2-1.3); MAGNESIUM - SERUM 2.3 mg/dL (1.8-2.4); PROTEIN - SERUM 7.2 g/dL (6.4-8.2)
[2020-07-06 13:31] LABS: EOSINOPHILS 2 % (0-7); LYMPHOCYTES 44 % (15-50); MONOCYTES 9 % (2-11); NEUTROPHILS 45 % (40-80); PLATELET ESTIMATE NORMAL; ROULEAUX OCC
== END 2020-07-06 12:33 | disposition home or self-care (01) ==
LOC: D.ER 10:33
PROVIDERS: Emergency Medicine
DX: F20.9 Schizophrenia, unspecified (principal); R10.9 Unspecified abdominal pain